=== PATIENT | female | born 1935 | race Caucasian/White ===

== ENCOUNTER 2019-07-25 14:50 | Inpatient (IN) ==
[2019-07-25] MEDS ORDERED: ACETAMINOPHEN 325 MG TABLET PO PRN (15:41)
[2019-07-25] MEDS ORDERED: ALBUTEROL/IPRATROPIUM 3 ML NEB RESP TX PRN (15:41)
[2019-07-25 16:54] LABS: Basophils # 0.1 10*3/uL (0.0-0.2); Basophils % 0.9 % (0.0-0.8); Eosinophils # 0.3 10*3/uL (0.0-0.87); Eosinophils % 1.8 % (0.00-10.9); Hematocrit 36.4 VOL% (35.7-47.0); Hemoglobin 11.9 GM/DL (12.0-16.0); Immature Granulocytes % 0.5 %; Immature Granulocytes Absolute 0.07 #; Lymphocytes # 2.2 10*3/uL (1.4-4.0); Lymphocytes % 15.1 % (21.3-54.2); Mean Corpuscular HGB Conc 32.7 GM/DL (32-36); Mean Corpuscular Volume 91.5 FL (87-102); Monocytes % 10.5 % (1.7-12.7); Neutrophils % 71.2 % (38.7-73.9); Platelet Count 316 T/CUMM (130-400); Red Blood Count 3.98 MC/CUMM (3.8-5.5); Red Cell Distribution Width 13.3 % (9.3-17.3); White Blood Count 14.6 T/CUMM (4-12)
[2019-07-25 17:16] LABS: Albumin 3.5 G/DL (3.4-5.0); Bilirubin,Total 0.4 MG/DL (0.2-1.0); Calcium 9.5 MG/DL (8.5-10.1); Osmolality,Calculated 280.4 MOS/KG (273-304); Total Protein 7.6 G/DL (6.4-8.3)
[2019-07-25] MEDS: LACTATED RINGERS 1,000 ML IV SCH (18:35)
[2019-07-25] MEDS: PIPERACILLIN/TAZOBACTAM 3,375 MG in SODIUM CHLORIDE 0.9% 100 ML IV SCH (18:35)
[2019-07-25 22:06] LABS: Apearance,Urine CLEAR (Clear); Bilirubin,Urine Negative (Negative); Blood, Urine Negative (Negative); Glucose,Urine (UA) Negative (Negative); Ketones,Urine Negative (Negative); Nitrite,Urine Negative (Negative); Protein,Urine Negative; RBC,Urine 2 /HPF (0-4); Squamous Epithelial Cell,Urine Occasional /HPF (0-10); Urine Color Yellow (Yellow); Urine Urobilinogen < 2.0 EU/DL (0.2-1.0); WBC,Urine 1 /HPF (0-6)
[2019-07-26] MEDS: MORPHINE 4 MG/1 ML VIAL IV PRN ×3 (00:29→21:04)
[2019-07-26] MEDS: PIPERACILLIN/TAZOBACTAM 3,375 MG in SODIUM CHLORIDE 0.9% 100 ML IV SCH ×3 (02:50→18:20)
[2019-07-26 07:05] LABS: Basophils # 0.1 10*3/uL (0.0-0.2); Basophils % 0.9 % (0.0-0.8); Eosinophils # 0.3 10*3/uL (0.0-0.87); Eosinophils % 2.9 % (0.00-10.9); Hematocrit 37.3 VOL% (35.7-47.0); Immature Granulocytes % 0.5 %; Immature Granulocytes Absolute 0.05 #; Lymphocytes # 2.1 10*3/uL (1.4-4.0); Lymphocytes % 19.3 % (21.3-54.2); Mean Corpuscular HGB Conc 32.2 GM/DL (32-36); Mean Corpuscular Volume 91.9 FL (87-102); Mean Platelet Volume 9.7 FL (9.6-12.0); Monocytes % 10.9 % (1.7-12.7); Neutrophils % 65.5 % (38.7-73.9); Platelet Count 311 T/CUMM (130-400); Red Blood Count 4.06 MC/CUMM (3.8-5.5); Red Cell Distribution Width 13.6 % (9.3-17.3); White Blood Count 10.8 T/CUMM (4-12)
[2019-07-26 07:31] LABS: Calcium 9.4 MG/DL (8.5-10.1); Osmolality,Calculated 275.7 MOS/KG (273-304)
[2019-07-26] MEDS: PANTOPRAZOLE 40 MG VIAL IV SCH (09:11)
[2019-07-26] MEDS: LACTATED RINGERS 1,000 ML IV SCH (14:51)
[2019-07-26] MEDS: ONDANSETRON 4 MG/2 ML VIAL IV PRN (19:41)
[2019-07-27] MEDS: PIPERACILLIN/TAZOBACTAM 3,375 MG in SODIUM CHLORIDE 0.9% 100 ML IV SCH ×3 (02:28→18:36)
[2019-07-27] MEDS: LACTATED RINGERS 1,000 ML IV SCH ×5 (02:31→21:29)
[2019-07-27] MEDS: ONDANSETRON 4 MG/2 ML VIAL IV PRN (03:02)
[2019-07-27] MEDS ORDERED: SODIUM CHLORIDE 0.9% 1,000 ML IV SCH (05:30)
[2019-07-27 05:45] LABS: Basophils # 0.1 10*3/uL (0.0-0.2); Basophils % 0.4 % (0.0-0.8); Eosinophils # 0.2 10*3/uL (0.0-0.87); Eosinophils % 1.7 % (0.00-10.9); Hemoglobin 11.1 GM/DL (12.0-16.0); Immature Granulocytes % 0.3 %; Immature Granulocytes Absolute 0.04 #; Lymphocytes # 1.3 10*3/uL (1.4-4.0); Lymphocytes % 9.7 % (21.3-54.2); Mean Corpuscular HGB Conc 32.6 GM/DL (32-36); Mean Corpuscular Volume 90.2 FL (87-102); Mean Platelet Volume 10.1 FL (9.6-12.0); Neutrophils % 78.9 % (38.7-73.9); Platelet Count 302 T/CUMM (130-400); Red Blood Count 3.77 MC/CUMM (3.8-5.5); Red Cell Distribution Width 13.6 % (9.3-17.3); White Blood Count 12.9 T/CUMM (4-12)
[2019-07-27 05:51] LABS: PT Patient Result 10.4 SECS (9.6-12.2)
[2019-07-27 06:48] LABS: Calcium 8.8 MG/DL (8.5-10.1)
[2019-07-27 06:49] LABS: Alanine Aminotransferase 18 U/L (13-56); Albumin 3.1 G/DL (3.4-5.0); Alkaline Phosphatase 65 U/L (45-117); Aspartate Amino Transferase 17 U/L (0-37); Blood Urea Nitrogen 11 MG/DL (7-18); Estimated Glom Filtration Rate 43 ML/MIN; Glucose 113 MG/DL (74-106); Osmolality,Calculated 282.1 MOS/KG (273-304); Total Protein 6.9 G/DL (6.4-8.3)
[2019-07-27] MEDS: PANTOPRAZOLE 40 MG VIAL IV SCH (10:43)
[2019-07-27] MEDS: lisinopriL 20 MG TABLET PO SCH (10:43)
[2019-07-27] MEDS ORDERED: NIFEdipine 10 MG CAPSULE PO PRN (13:40)
[2019-07-27] MEDS: LEVOTHYROXINE 100 MCG VIAL IV SCH (13:42)
[2019-07-27] MEDS: CALCIUM (CARBONATE) 500 MG TABLET PO SCH (13:42)
[2019-07-28] MEDS: PIPERACILLIN/TAZOBACTAM 3,375 MG in SODIUM CHLORIDE 0.9% 100 ML IV SCH ×2 (03:32→09:49)
[2019-07-28 04:56] LABS: Basophils # 0.1 10*3/uL (0.0-0.2); Basophils % 0.7 % (0.0-0.8); Eosinophils # 0.4 10*3/uL (0.0-0.87); Eosinophils % 4.4 % (0.00-10.9); Hematocrit 32.9 VOL% (35.7-47.0); Hemoglobin 10.5 GM/DL (12.0-16.0); Immature Granulocytes % 0.6 %; Immature Granulocytes Absolute 0.06 #; Lymphocytes # 1.7 10*3/uL (1.4-4.0); Lymphocytes % 16.7 % (21.3-54.2); Mean Corpuscular HGB Conc 31.9 GM/DL (32-36); Mean Corpuscular Volume 91.1 FL (87-102); Mean Platelet Volume 9.9 FL (9.6-12.0); Monocytes % 10.8 % (1.7-12.7); Neutrophils % 66.8 % (38.7-73.9); Platelet Count 268 T/CUMM (130-400); Red Blood Count 3.61 MC/CUMM (3.8-5.5); Red Cell Distribution Width 13.4 % (9.3-17.3)
[2019-07-28 05:26] LABS: Calcium 8.4 MG/DL (8.5-10.1); Osmolality,Calculated 286.6 MOS/KG (273-304)
[2019-07-28] MEDS ORDERED: SERTRALINE 50 MG TABLET PO SCH (09:00)
[2019-07-28] MEDS ORDERED: GLUCOSAMINE 500 MG TABLET PO SCH (09:00)
[2019-07-28] MEDS ORDERED: PSYLLIUM POWDER 3.7 GM/PACK PO SCH (09:00)
[2019-07-28] MEDS: lisinopriL 20 MG TABLET PO SCH (09:17)
[2019-07-28] MEDS: LACTATED RINGERS 1,000 ML IV SCH (09:47)
[2019-07-28] MEDS: CALCIUM (CARBONATE) 500 MG TABLET PO SCH (09:48)
[2019-07-28] MEDS: LEVOTHYROXINE 100 MCG VIAL IV SCH (09:48)
[2019-07-28] MEDS: PANTOPRAZOLE 40 MG VIAL IV SCH (09:48)
[2019-07-28 15:56] VITALS: BP 141/111
== END 2019-07-28 16:21 | disposition home or self-care (01) | DRG 392 ==
LOC: N.3E 15:54 → N.CC 07-27 05:24 → N.3E 07-27 11:05
PROVIDERS: ADMIT Surgery; ATTEND Surgery